=== PATIENT | female | born 1950 | race African-American/Black ===

== ENCOUNTER 2023-06-08 12:04 | Inpatient (IN) | payer MEDICARE, MEDICAID ==
[~2023-06-08] VITALS: Ht 193 cm; Wt 79.4 kg
[2023-06-08] MEDS ORDERED: KETOROLAC TROMETHAMINE 60 MG/2 ML VIAL IM ONE (14:30)
[2023-06-08 14:34] LABS: BASOPHILS % (AUTO) 1.6 % (0.0-2.0); EOSINOPHILS % (AUTO) 2.2 % (1.0-6.0); HEMATOCRIT 36.2 % (36-46); HEMOGLOBIN 11.8 g/dL (12.0-16.0); LYMPHOCYTES # (AUTO) 1.3 K/uL (1.0-4.8); LYMPHOCYTES % (AUTO) 38.3 % (22.0-44.0); MEAN CORPUSCULAR HEMOGLOBIN 27.9 pg (26.0-34.0); MEAN CORPUSCULAR HGB CONC 32.6 G/dL (31.0-37.0); MEAN CORPUSCULAR VOLUME 86 fL (80-100); MONOCYTES # (AUTO) 0.5 K/uL (0.1-1.0); NEUTROPHILS # (AUTO) 1.6 K/uL (1.8-7.7); NEUTROPHILS % (AUTO) 44.9 % (40.0-70.0); PLATELET COUNT (AUTO) 259 K/uL (150-450); RED BLOOD CELL COUNT(AUTO) 4.22 MIL/uL (4.00-5.20); RED CELL DISTRIBUTION WIDTH 15.4 % (11.5-14.5); WHITE BLOOD COUNT (AUTO) 3.5 K/uL (4.5-11.0)
[2023-06-08 14:40] LABS: ANION GAP 12 mmol/L (8-16); CARBON DIOXIDE 27 mmol/L (22-29); CHLORIDE 103 mmol/L (98-107); CREATININE 0.63 mg/dL (0.60-1.30); GLOMERULAR FILTR. RATE CALC > 60 mL/min (>60); GLUCOSE,RANDOM 84 mg/dL (70-110); POTASSIUM 3.6 mmol/L (3.5-5.1); SODIUM SERUM 142 mmol/L (136-145); UREA NITROGEN, BLOOD 13 mg/dL (7-18)
[2023-06-08 14:45] LABS: ALANINE AMINOTRANSFERASE 15 U/L (12-78); ALBUMIN 3.3 g/dL (3.4-5.0); ALKALINE PHOSPHATASE 73 U/L (46-116); ASPARTATE AMINOTRANSFERASE 14 U/L (15-37); BILIRUBIN,TOTAL 0.3 mg/dL (0.1-1.0)
[2023-06-08 14:46] LABS: ALCOHOL, BLOOD (SERUM) < 3 mg/dL (0-10)
[2023-06-08] MEDS ORDERED: QUEtiapine FUMARATE 100 MG TABLET PO PRN (15:00)
[2023-06-08 16:17] LABS: COVID AG,FIA SOURCE NASAL SWAB
[2023-06-08] MEDS ORDERED: OLANZapine 5 MG RAPDIS TABLET PO ONE (16:30)
[2023-06-08 16:40] LABS: SARS-COV2 (COVID) ANTIGEN,FIA Negative (Negative)
[2023-06-08 17:02] LABS: PLATELET MORPHOLOGY COMMENT LARGE PLTS PRESENT
[2023-06-08 18:28] LABS: PH,URINE DRUG SCREEN 6.5 (5.0-8.0)
[2023-06-08 18:31] LABS: AMPHET/METH SCREEN,URINE NEGATIVE (NEGATIVE); BARBITURATE SCREEN, URINE NEGATIVE (NEGATIVE); BENZODIAZEPINES SCREEN,URINE NEGATIVE (NEGATIVE); CANNABINOID SCREEN,URINE NEGATIVE (NEGATIVE); COCAINE SCREEN,URINE NEGATIVE (NEGATIVE); METHADONE SCREEN, URINE NEGATIVE (NEGATIVE); OPIATE SCREEN,URINE NEGATIVE (NEGATIVE); PHENCYCLIDINE SCREEN,URINE NEGATIVE (NEGATIVE)
[2023-06-08 18:37] LABS: ALCOHOL, URINE DRUG SCREEN NEGATIVE (NEGATIVE)
[2023-06-08] MEDS: LORazepam 2 MG TABLET PO PRN (19:33)
[2023-06-08] MEDS: ZOLPIDEM TARTRATE 10 MG TABLET PO PRN (19:33)
[2023-06-09 19:41] VITALS: BP 115/69; PULSE 75; RESP 18; TEMP 98; O2SAT 97
[2023-06-09 20:25] VITALS: BP 122/89; PULSE 82; RESP 18; TEMP 98; O2SAT 98
[2023-06-09] MEDS ORDERED: PNEUMOCOCCAL VACCINE POLYVALENT 0.5 ML SYRINGE [PPSV23] IM. ONE (20:45)
[2023-06-10] MEDS ORDERED: LOPERAMIDE HCL 2 MG CAPSULE PO PRN (06:00)
[2023-06-10] MEDS ORDERED: MAG HYDROX/AL HYDROX/SIMETH ES 30 ML SUSPENSION UDCUP PO PRN (06:00)
[2023-06-10] MEDS ORDERED: PETROLATUM,WHITE 28 GM JELLY TP PRN (06:00)
[2023-06-10] MEDS ORDERED: CloNIDine HCL 0.1 MG TABLET PO PRN (06:00)
[2023-06-10] MEDS ORDERED: DOCUSATE SODIUM 100 MG CAPSULE PO PRN (06:00)
[2023-06-10] MEDS ORDERED: ALBUTEROL SULFATE HFA 90 MCG/PUFF 8 GM INHALER IH PRN (06:00)
[2023-06-10] MEDS ORDERED: ONDANSETRON HCL 4 MG TABLET PO PRN (06:00)
[2023-06-10] MEDS ORDERED: MAGNESIUM HYDROXIDE SUSPENSION 30 ML UDCUP PO PRN (06:00)
[2023-06-10] MEDS ORDERED: OMEPRAZOLE 20 MG CAPSULE PO PRN (06:00)
[2023-06-10] MEDS ORDERED: BENZOCAINE/MENTHOL LOZENGE PO PRN (06:00)
[2023-06-10 08:11] VITALS: RESP 18; O2SAT 98
[2023-06-10] MEDS: ACETAMINOPHEN 325 MG TABLET PO PRN (08:11)
[2023-06-10 08:36] VITALS: BP 129/98; PULSE 77; RESP 18; TEMP 97.9; O2SAT 98
[2023-06-10 09:11] VITALS: RESP 18
[2023-06-10] MEDS: LORazepam 2 MG TABLET PO PRN (11:09)
[2023-06-10] MEDS: BACITRACIN 28 GM OINTMENT TP PRN (16:35)
[2023-06-10 20:30] VITALS: BP 136/63; PULSE 64; RESP 17; TEMP 97.4; O2SAT 98
[2023-06-10] MEDS: IBUPROFEN 600 MG TABLET PO PRN (21:30)
[2023-06-11 08:20] VITALS: BP 126/65; PULSE 67; RESP 16; TEMP 97.3; O2SAT 97
[2023-06-11 08:54] LABS: HEMOGLOBIN A1C 5.7 % (3.8-5.6)
[2023-06-11 08:57] LABS: CHOL/HDL RATIO 2.4 (3.9-5.7); THYROID STIMULATING HORMONE 1.69 uIU/mL (0.36-3.74)
[2023-06-11] MEDS ORDERED: NYSTATIN 15 GM POWDER BOTTLE TP PRN (09:00)
[2023-06-11] MEDS: NYSTATIN 15 GM POWDER BOTTLE TP SCH ×2 (09:00→17:00)
[2023-06-11] MEDS: IBUPROFEN 600 MG TABLET PO PRN (13:50)
[2023-06-11] MEDS ORDERED: NYSTATIN 15 GM POWDER BOTTLE TP SCH (18:15)
[2023-06-11 20:00] VITALS: RESP 21; TEMP 97.8
[2023-06-11] MEDS: SENNOSIDES/DOCUSATE SODIUM 8.6-50 MG TABLET PO SCH (20:00)
[2023-06-11] MEDS: ZIPRASIDONE HCL 40 MG CAPSULE PO SCH (21:08)
[2023-06-11] MEDS: ACETAMINOPHEN 325 MG TABLET PO PRN (21:58)
[2023-06-12] MEDS: ZIPRASIDONE HCL 40 MG CAPSULE PO SCH ×2 (06:02→16:21)
[2023-06-12] MEDS: MetFORMIN HCL 500 MG TABLET PO SCH ×2 (06:02→16:22)
[2023-06-12] MEDS: ASPIRIN 81 MG CHEWABLE TABLET PO SCH (06:02)
[2023-06-12 06:41] LABS: GLUCOMETER DEV NAME(LOC) BV2X.2; GLUCOSE,POINT OF CARE 101 MG/DL (70-110)
[2023-06-12] MEDS: SENNOSIDES/DOCUSATE SODIUM 8.6-50 MG TABLET PO SCH ×2 (08:10→16:21)
[2023-06-12] MEDS: LISINOPRIL 5 MG TABLET PO SCH (08:10)
[2023-06-12] MEDS: NYSTATIN 15 GM POWDER BOTTLE TP SCH ×2 (08:17→16:21)
[2023-06-12 08:33] VITALS: BP 140/75; PULSE 66; RESP 17; TEMP 97.3; O2SAT 98
[2023-06-12 16:41] LABS: GLUCOMETER DEV NAME(LOC) BV2X.2; GLUCOSE,POINT OF CARE 130 MG/DL (70-110)
[2023-06-12 20:27] VITALS: BP 140/67; PULSE 69; RESP 18; TEMP 98; O2SAT 97
[2023-06-13] MEDS: ACETAMINOPHEN 325 MG TABLET PO PRN ×2 (04:26→23:44)
[2023-06-13] MEDS: ASPIRIN 81 MG CHEWABLE TABLET PO SCH (07:00)
[2023-06-13] MEDS: ZIPRASIDONE HCL 40 MG CAPSULE PO SCH ×2 (07:01→17:16)
[2023-06-13] MEDS: MetFORMIN HCL 500 MG TABLET PO SCH ×2 (07:01→17:16)
[2023-06-13 07:16] LABS: GLUCOMETER DEV NAME(LOC) BV2X.2; GLUCOSE,POINT OF CARE 83 MG/DL (70-110)
[2023-06-13] MEDS: LISINOPRIL 5 MG TABLET PO SCH (08:32)
[2023-06-13] MEDS: SENNOSIDES/DOCUSATE SODIUM 8.6-50 MG TABLET PO SCH ×2 (08:32→17:17)
[2023-06-13] MEDS: NYSTATIN 15 GM POWDER BOTTLE TP SCH ×2 (08:33→17:17)
[2023-06-13 08:55] VITALS: BP 116/32; PULSE 76; RESP 17; TEMP 97.6; O2SAT 97
[2023-06-13] MEDS: BACITRACIN 28 GM OINTMENT TP PRN (12:32)
[2023-06-13 17:21] LABS: GLUCOMETER DEV NAME(LOC) BV2X.2; GLUCOSE,POINT OF CARE 96 MG/DL (70-110)
[2023-06-13 20:40] VITALS: BP 130/85; PULSE 85; RESP 18; TEMP 98; O2SAT 98
[2023-06-13 23:44] VITALS: RESP 18
[2023-06-14 00:44] VITALS: RESP 18
[2023-06-14] MEDS: MetFORMIN HCL 500 MG TABLET PO SCH ×2 (06:15→16:16)
[2023-06-14] MEDS: ZIPRASIDONE HCL 40 MG CAPSULE PO SCH ×2 (06:15→16:28)
[2023-06-14] MEDS: ASPIRIN 81 MG CHEWABLE TABLET PO SCH (06:16)
[2023-06-14 06:37] LABS: GLUCOMETER DEV NAME(LOC) BV2X.2; GLUCOSE,POINT OF CARE 85 MG/DL (70-110)
[2023-06-14] MEDS: SENNOSIDES/DOCUSATE SODIUM 8.6-50 MG TABLET PO SCH ×2 (08:39→16:16)
[2023-06-14] MEDS: LISINOPRIL 5 MG TABLET PO SCH (08:39)
[2023-06-14] MEDS: NYSTATIN 15 GM POWDER BOTTLE TP SCH ×2 (08:40→16:17)
[2023-06-14 10:05] VITALS: BP 155/72; PULSE 69; RESP 18; TEMP 97.2; O2SAT 99
[2023-06-14] MEDS ORDERED: METHYL SALICYLATE/MENTHOL 85 GM CREAM TP PRN (15:15)
[2023-06-14 20:56] VITALS: BP 139/63; PULSE 61; RESP 18; TEMP 97.8; O2SAT 97
[2023-06-15 04:39] VITALS: BP 135/58; PULSE 60; RESP 18; TEMP 97.7; O2SAT 97
[2023-06-15] MEDS: ACETAMINOPHEN 325 MG TABLET PO PRN (04:41)
[2023-06-15 05:41] VITALS: RESP 18
[2023-06-15 06:50] LABS: GLUCOMETER DEV NAME(LOC) BV2X.2; GLUCOSE,POINT OF CARE 93 MG/DL (70-110)
[2023-06-15] MEDS: ASPIRIN 81 MG CHEWABLE TABLET PO SCH (06:51)
[2023-06-15] MEDS: MetFORMIN HCL 500 MG TABLET PO SCH ×2 (06:51→17:06)
[2023-06-15] MEDS: ZIPRASIDONE HCL 40 MG CAPSULE PO SCH ×2 (06:51→17:06)
[2023-06-15 08:10] VITALS: BP 135/62; PULSE 75; RESP 18; TEMP 97.5; O2SAT 97
[2023-06-15] MEDS: SENNOSIDES/DOCUSATE SODIUM 8.6-50 MG TABLET PO SCH ×2 (08:52→17:06)
[2023-06-15] MEDS: LISINOPRIL 5 MG TABLET PO SCH (08:52)
[2023-06-15] MEDS: NYSTATIN 15 GM POWDER BOTTLE TP SCH ×2 (09:16→17:07)
[2023-06-15 16:31] LABS: GLUCOMETER DEV NAME(LOC) BV2X.2; GLUCOSE,POINT OF CARE 112 MG/DL (70-110)
[2023-06-15 20:36] VITALS: BP 125/62; PULSE 71; RESP 18; TEMP 97.7; O2SAT 96
[2023-06-16 07:02] LABS: GLUCOMETER DEV NAME(LOC) BV2X.2; GLUCOSE,POINT OF CARE 83 MG/DL (70-110)
[2023-06-16] MEDS: ZIPRASIDONE HCL 40 MG CAPSULE PO SCH ×2 (07:13→17:16)
[2023-06-16] MEDS: MetFORMIN HCL 500 MG TABLET PO SCH ×2 (07:13→17:16)
[2023-06-16] MEDS: ASPIRIN 81 MG CHEWABLE TABLET PO SCH (07:14)
[2023-06-16 08:09] VITALS: BP 146/71; PULSE 60; RESP 17; TEMP 97.8; O2SAT 98
[2023-06-16] MEDS: SENNOSIDES/DOCUSATE SODIUM 8.6-50 MG TABLET PO SCH ×2 (08:47→16:44)
[2023-06-16] MEDS: LISINOPRIL 5 MG TABLET PO SCH (08:48)
[2023-06-16] MEDS: NYSTATIN 15 GM POWDER BOTTLE TP SCH ×2 (08:48→17:16)
[2023-06-16 16:56] LABS: GLUCOMETER DEV NAME(LOC) BV2X.2; GLUCOSE,POINT OF CARE 111 MG/DL (70-110)
[2023-06-16 20:25] VITALS: BP 122/73; PULSE 62; RESP 18; TEMP 97.5; O2SAT 96
[2023-06-17] MEDS: ZIPRASIDONE HCL 40 MG CAPSULE PO SCH ×2 (06:50→17:13)
[2023-06-17] MEDS: ASPIRIN 81 MG CHEWABLE TABLET PO SCH (06:50)
[2023-06-17] MEDS: MetFORMIN HCL 500 MG TABLET PO SCH ×2 (06:51→17:13)
[2023-06-17 07:01] LABS: GLUCOMETER DEV NAME(LOC) BV2X.2; GLUCOSE,POINT OF CARE 105 MG/DL (70-110)
[2023-06-17 09:00] VITALS: BP 116/59; PULSE 78; RESP 18; TEMP 98; O2SAT 98
[2023-06-17] MEDS: NYSTATIN 15 GM POWDER BOTTLE TP SCH ×2 (09:45→17:13)
[2023-06-17] MEDS: SENNOSIDES/DOCUSATE SODIUM 8.6-50 MG TABLET PO SCH ×2 (09:45→17:13)
[2023-06-17] MEDS: LISINOPRIL 5 MG TABLET PO SCH (09:45)
[2023-06-17 16:46] LABS: GLUCOMETER DEV NAME(LOC) BV2X.2; GLUCOSE,POINT OF CARE 103 MG/DL (70-110)
[2023-06-17 20:13] VITALS: BP 145/64; PULSE 60; RESP 19; TEMP 98; O2SAT 98
[2023-06-18 01:25] VITALS: BP 142/79; PULSE 67; RESP 18; TEMP 97.8; O2SAT 98
[2023-06-18] MEDS: ACETAMINOPHEN 325 MG TABLET PO PRN (01:30)
[2023-06-18] MEDS: MetFORMIN HCL 500 MG TABLET PO SCH ×2 (06:50→16:24)
[2023-06-18] MEDS: ASPIRIN 81 MG CHEWABLE TABLET PO SCH (06:50)
[2023-06-18] MEDS: ZIPRASIDONE HCL 40 MG CAPSULE PO SCH ×2 (06:50→17:24)
[2023-06-18 07:11] LABS: GLUCOMETER DEV NAME(LOC) BV2X.2; GLUCOSE,POINT OF CARE 91 MG/DL (70-110)
[2023-06-18] MEDS: SENNOSIDES/DOCUSATE SODIUM 8.6-50 MG TABLET PO SCH ×2 (08:17→16:24)
[2023-06-18] MEDS: NYSTATIN 15 GM POWDER BOTTLE TP SCH ×2 (08:17→16:24)
[2023-06-18] MEDS: LISINOPRIL 5 MG TABLET PO SCH (08:17)
[2023-06-18] MEDS: BACITRACIN 28 GM OINTMENT TP PRN (08:17)
[2023-06-18 08:51] VITALS: BP 130/69; PULSE 66; RESP 19; TEMP 97.4; O2SAT 100
[2023-06-18] MEDS: DICLOFENAC SODIUM 1% 100 GM GEL [4GM] TP SCH (17:00)
[2023-06-18 17:21] LABS: GLUCOMETER DEV NAME(LOC) BV2X.2; GLUCOSE,POINT OF CARE 93 MG/DL (70-110)
[2023-06-18 21:28] VITALS: BP 140/83; PULSE 65; RESP 18; TEMP 97.8; O2SAT 98
[2023-06-19 01:23] VITALS: RESP 18
[2023-06-19] MEDS: IBUPROFEN 600 MG TABLET PO PRN (01:42)
[2023-06-19] MEDS: ZOLPIDEM TARTRATE 10 MG TABLET PO PRN ×2 (01:42→23:03)
[2023-06-19 06:41] LABS: GLUCOMETER DEV NAME(LOC) BV2X.2; GLUCOSE,POINT OF CARE 81 MG/DL (70-110)
[2023-06-19] MEDS: ZIPRASIDONE HCL 40 MG CAPSULE PO SCH ×2 (07:05→16:35)
[2023-06-19] MEDS: MetFORMIN HCL 500 MG TABLET PO SCH ×2 (07:06→16:35)
[2023-06-19] MEDS: ASPIRIN 81 MG CHEWABLE TABLET PO SCH (07:06)
[2023-06-19] MEDS: DICLOFENAC SODIUM 1% 100 GM GEL [4GM] TP SCH ×2 (08:24→16:35)
[2023-06-19] MEDS: LISINOPRIL 5 MG TABLET PO SCH (08:24)
[2023-06-19] MEDS: SENNOSIDES/DOCUSATE SODIUM 8.6-50 MG TABLET PO SCH ×2 (08:24→16:35)
[2023-06-19 08:59] VITALS: BP 130/79; PULSE 69; RESP 18; TEMP 98.8; O2SAT 98
[2023-06-19 20:33] VITALS: BP 130/69; PULSE 63; RESP 18; TEMP 97.6; O2SAT 97
[2023-06-20] MEDS: ZIPRASIDONE HCL 40 MG CAPSULE PO SCH ×2 (06:23→16:28)
[2023-06-20] MEDS: MetFORMIN HCL 500 MG TABLET PO SCH ×2 (06:24→16:28)
[2023-06-20] MEDS: ASPIRIN 81 MG CHEWABLE TABLET PO SCH (06:24)
[2023-06-20 06:37] LABS: GLUCOMETER DEV NAME(LOC) BV2X.2; GLUCOSE,POINT OF CARE 93 MG/DL (70-110)
[2023-06-20] MEDS: SENNOSIDES/DOCUSATE SODIUM 8.6-50 MG TABLET PO SCH ×2 (08:10→16:28)
[2023-06-20] MEDS: DICLOFENAC SODIUM 1% 100 GM GEL [4GM] TP SCH ×2 (08:11→16:28)
[2023-06-20] MEDS: LISINOPRIL 5 MG TABLET PO SCH (08:50)
[2023-06-20 08:58] VITALS: BP 140/70; PULSE 60; RESP 17; TEMP 97; O2SAT 100
[2023-06-20 17:21] LABS: GLUCOMETER DEV NAME(LOC) BV2X.2; GLUCOSE,POINT OF CARE 86 MG/DL (70-110)
[2023-06-20] MEDS: ZOLPIDEM TARTRATE 10 MG TABLET PO PRN (22:29)
[2023-06-20 23:13] VITALS: BP 113/78; PULSE 76; RESP 18; TEMP 97.8; O2SAT 98
[2023-06-21 06:05] VITALS: BP 110/77; PULSE 75; RESP 17; TEMP 97.9
[2023-06-21] MEDS: ZIPRASIDONE HCL 40 MG CAPSULE PO SCH ×2 (06:07→17:01)
[2023-06-21] MEDS: ASPIRIN 81 MG CHEWABLE TABLET PO SCH (06:07)
[2023-06-21] MEDS: MetFORMIN HCL 500 MG TABLET PO SCH ×2 (07:10→17:01)
[2023-06-21 07:20] LABS: GLUCOMETER DEV NAME(LOC) BV2X.2; GLUCOSE,POINT OF CARE 96 MG/DL (70-110)
[2023-06-21 08:09] VITALS: BP 146/70; PULSE 71; RESP 17; TEMP 96.7; O2SAT 97
[2023-06-21] MEDS: LISINOPRIL 5 MG TABLET PO SCH (08:24)
[2023-06-21] MEDS: DICLOFENAC SODIUM 1% 100 GM GEL [4GM] TP SCH ×2 (08:27→17:01)
[2023-06-21] MEDS: SENNOSIDES/DOCUSATE SODIUM 8.6-50 MG TABLET PO SCH ×2 (09:00→17:01)
[2023-06-21 12:55] VITALS: RESP 17
[2023-06-21] MEDS: ACETAMINOPHEN 325 MG TABLET PO PRN (12:55)
[2023-06-21 13:55] VITALS: RESP 16
[2023-06-21 17:21] LABS: GLUCOMETER DEV NAME(LOC) BV2X.2; GLUCOSE,POINT OF CARE 101 MG/DL (70-110)
[2023-06-21 20:01] VITALS: BP 140/74; PULSE 68; RESP 17; TEMP 97.8; O2SAT 98
[2023-06-21] MEDS: ZOLPIDEM TARTRATE 10 MG TABLET PO PRN (23:46)
[2023-06-22 06:10] LABS: GLUCOMETER DEV NAME(LOC) BV2X.2; GLUCOSE,POINT OF CARE 83 MG/DL (70-110)
[2023-06-22] MEDS: MetFORMIN HCL 500 MG TABLET PO SCH ×2 (07:02→17:20)
[2023-06-22] MEDS: ASPIRIN 81 MG CHEWABLE TABLET PO SCH (07:02)
[2023-06-22] MEDS: ZIPRASIDONE HCL 40 MG CAPSULE PO SCH ×2 (07:02→17:20)
[2023-06-22 08:15] VITALS: BP 145/77; PULSE 74; RESP 18; TEMP 97.4; O2SAT 97
[2023-06-22] MEDS: SENNOSIDES/DOCUSATE SODIUM 8.6-50 MG TABLET PO SCH ×2 (08:16→17:20)
[2023-06-22] MEDS: LISINOPRIL 5 MG TABLET PO SCH (08:16)
[2023-06-22] MEDS: DICLOFENAC SODIUM 1% 100 GM GEL [4GM] TP SCH ×2 (08:17→17:20)
[2023-06-22] MEDS ORDERED: PHENYLEPHRINE/SHK LV/MIN OIL/PET 57 GM OINTMENT TP PRN (15:00)
[2023-06-22 17:21] LABS: GLUCOMETER DEV NAME(LOC) BV2X.2; GLUCOSE,POINT OF CARE 80 MG/DL (70-110)
[2023-06-22 20:01] VITALS: BP 125/65; PULSE 98; RESP 17; TEMP 97.9; O2SAT 100
[2023-06-23 02:37] VITALS: BP 127/83; PULSE 82; RESP 17; TEMP 97.8
[2023-06-23] MEDS: ZOLPIDEM TARTRATE 10 MG TABLET PO PRN ×2 (02:38→20:19)
[2023-06-23] MEDS: ACETAMINOPHEN 325 MG TABLET PO PRN (02:39)
[2023-06-23] MEDS: ZIPRASIDONE HCL 40 MG CAPSULE PO SCH ×2 (06:17→16:05)
[2023-06-23] MEDS: MetFORMIN HCL 500 MG TABLET PO SCH ×2 (06:17→16:05)
[2023-06-23] MEDS: ASPIRIN 81 MG CHEWABLE TABLET PO SCH (06:17)
[2023-06-23 07:26] LABS: GLUCOMETER DEV NAME(LOC) BV2X.2; GLUCOSE,POINT OF CARE 84 MG/DL (70-110)
[2023-06-23] MEDS: SENNOSIDES/DOCUSATE SODIUM 8.6-50 MG TABLET PO SCH ×2 (08:07→16:05)
[2023-06-23] MEDS: LISINOPRIL 5 MG TABLET PO SCH (08:07)
[2023-06-23] MEDS: DICLOFENAC SODIUM 1% 100 GM GEL [4GM] TP SCH ×2 (08:09→16:07)
[2023-06-23 08:48] VITALS: BP 129/67; PULSE 54; RESP 17; TEMP 97.5; O2SAT 98
[2023-06-23] MEDS: LORazepam 2 MG TABLET PO PRN (12:49)
[2023-06-23 16:41] LABS: GLUCOMETER DEV NAME(LOC) BV2X.2; GLUCOSE,POINT OF CARE 119 MG/DL (70-110)
[2023-06-23 20:14] VITALS: BP 134/70; PULSE 60; RESP 17; TEMP 98.2; O2SAT 98
[2023-06-24] MEDS: NYSTATIN 15 GM POWDER BOTTLE TP PRN ×2 (00:22→08:10)
[2023-06-24] MEDS: ACETAMINOPHEN 325 MG TABLET PO PRN (03:04)
[2023-06-24 03:05] VITALS: BP 142/85; PULSE 68; RESP 18; TEMP 97.5; O2SAT 99
[2023-06-24] MEDS: ASPIRIN 81 MG CHEWABLE TABLET PO SCH (06:54)
[2023-06-24] MEDS: MetFORMIN HCL 500 MG TABLET PO SCH ×2 (06:54→17:05)
[2023-06-24] MEDS: ZIPRASIDONE HCL 40 MG CAPSULE PO SCH ×2 (06:54→17:05)
[2023-06-24] MEDS: DICLOFENAC SODIUM 1% 100 GM GEL [4GM] TP SCH ×2 (08:02→17:05)
[2023-06-24] MEDS: LISINOPRIL 5 MG TABLET PO SCH (08:02)
[2023-06-24] MEDS: SENNOSIDES/DOCUSATE SODIUM 8.6-50 MG TABLET PO SCH ×2 (08:02→17:05)
[2023-06-24 08:37] VITALS: BP 147/66; PULSE 65; RESP 16; TEMP 97.5; O2SAT 98
[2023-06-24 08:46] LABS: GLUCOMETER DEV NAME(LOC) BV2X.2; GLUCOSE,POINT OF CARE 68 MG/DL (70-110)
[2023-06-24 16:21] LABS: GLUCOMETER DEV NAME(LOC) BV2X.2; GLUCOSE,POINT OF CARE 81 MG/DL (70-110)
[2023-06-24 20:02] VITALS: RESP 18
[2023-06-25] MEDS: ZIPRASIDONE HCL 40 MG CAPSULE PO SCH ×2 (06:21→17:22)
[2023-06-25] MEDS: ASPIRIN 81 MG CHEWABLE TABLET PO SCH (06:21)
[2023-06-25] MEDS: MetFORMIN HCL 500 MG TABLET PO SCH ×2 (06:21→17:22)
[2023-06-25 07:41] LABS: GLUCOMETER DEV NAME(LOC) BV2X.2; GLUCOSE,POINT OF CARE 88 MG/DL (70-110)
[2023-06-25] MEDS: SENNOSIDES/DOCUSATE SODIUM 8.6-50 MG TABLET PO SCH ×2 (08:06→17:22)
[2023-06-25] MEDS: LISINOPRIL 5 MG TABLET PO SCH (08:06)
[2023-06-25] MEDS: DICLOFENAC SODIUM 1% 100 GM GEL [4GM] TP SCH ×2 (08:08→17:23)
[2023-06-25 08:19] VITALS: BP 151/74; PULSE 64; RESP 18; TEMP 97.2; O2SAT 99
[2023-06-25 17:16] LABS: GLUCOMETER DEV NAME(LOC) BV2X.2; GLUCOSE,POINT OF CARE 101 MG/DL (70-110)
[2023-06-25 20:02] VITALS: BP 104/61; PULSE 66; RESP 17; TEMP 97.7; O2SAT 99
[2023-06-26 06:05] LABS: GLUCOMETER DEV NAME(LOC) BV2X.2; GLUCOSE,POINT OF CARE 86 MG/DL (70-110)
[2023-06-26 06:07] VITALS: BP 136/77; PULSE 74; RESP 17; TEMP 98
[2023-06-26] MEDS: ACETAMINOPHEN 325 MG TABLET PO PRN (06:09)
[2023-06-26] MEDS: MetFORMIN HCL 500 MG TABLET PO SCH ×2 (07:02→17:25)
[2023-06-26] MEDS: ZIPRASIDONE HCL 40 MG CAPSULE PO SCH ×2 (07:02→17:25)
[2023-06-26] MEDS: ASPIRIN 81 MG CHEWABLE TABLET PO SCH (07:03)
[2023-06-26] MEDS: NYSTATIN 15 GM POWDER BOTTLE TP PRN (08:32)
[2023-06-26 08:35] VITALS: BP 148/66; PULSE 55; RESP 18; TEMP 97.7; O2SAT 100
[2023-06-26 09:14] VITALS: PULSE 66
[2023-06-26] MEDS: DICLOFENAC SODIUM 1% 100 GM GEL [4GM] TP SCH ×2 (09:14→17:26)
[2023-06-26] MEDS: LISINOPRIL 5 MG TABLET PO SCH (09:14)
[2023-06-26] MEDS: SENNOSIDES/DOCUSATE SODIUM 8.6-50 MG TABLET PO SCH ×2 (09:14→17:25)
[2023-06-26] MEDS: LORazepam 2 MG TABLET PO PRN (14:01)
[2023-06-26 20:56] VITALS: BP 133/77; PULSE 60; RESP 19; TEMP 98; O2SAT 98
[2023-06-27] MEDS: ZIPRASIDONE HCL 40 MG CAPSULE PO SCH (06:08)
[2023-06-27] MEDS: ASPIRIN 81 MG CHEWABLE TABLET PO SCH (06:08)
[2023-06-27] MEDS: MetFORMIN HCL 500 MG TABLET PO SCH (06:08)
[2023-06-27 07:06] LABS: GLUCOMETER DEV NAME(LOC) BV2X.2; GLUCOSE,POINT OF CARE 79 MG/DL (70-110)
[2023-06-27 08:18] VITALS: BP 140/59; PULSE 73; RESP 18; TEMP 97.7; O2SAT 95
[2023-06-27 09:02] VITALS: BP 142/64; PULSE 74
[2023-06-27] MEDS: SENNOSIDES/DOCUSATE SODIUM 8.6-50 MG TABLET PO SCH (09:02)
[2023-06-27] MEDS: LISINOPRIL 5 MG TABLET PO SCH (09:02)
[2023-06-27] MEDS: DICLOFENAC SODIUM 1% 100 GM GEL [4GM] TP SCH ×2 (09:04→16:17)
[2023-06-27] MEDS: NYSTATIN 15 GM POWDER BOTTLE TP PRN (09:04)
[2023-06-27] MEDS ORDERED: ZIPR40CA38 PO (13:06)
[2023-06-27] MEDS ORDERED: ASPI-1450 PO (13:12)
[2023-06-27] MEDS ORDERED: LISI-892 PO (13:13)
[2023-06-27] MEDS ORDERED: METF-1211 PO (13:15)
[2023-06-27] MEDS ORDERED: SENN-376 PO (13:16)
== END 2023-06-27 17:20 | DRG 885 ==
LOC: EMS 12:04 → B2S 06-09 18:10 → B2X 06-10 08:58
PROVIDERS: ADMIT Psychiatry & Neurology Psychiatry; ATTEND Psychiatry & Neurology Psychiatry
DX: F20.9 Schizophrenia, unspecified (principal); F41.9 Anxiety disorder, unspecified; G47.00 Insomnia, unspecified; K59.00 Constipation, unspecified; I10 Essential (primary) hypertension; E11.9 Type 2 diabetes mellitus without complications; F32.A Depression, unspecified; Z20.822 Contact with and (suspected) exposure to COVID-19; Z88.0 Allergy status to penicillin
CPT/HCPCS: 80053; 80061; 80307; 82962; 83036; 84443; 85025; 90732; 99285; G0480; J1885